=== PATIENT | male | born 1945 | race African-American/Black ===

== ENCOUNTER 2017-08-21 15:21 | Emergency (ER) | payer OTHER ==
[~2017-08-21] VITALS: Ht 177.8 cm; Wt 65.0 kg
[2017-08-21 16:45] LABS: BASOPHIL (%) 0.5 % (0-1); EOSINOPHIL (%) 2.1 % (0-5); EOSINOPHIL COUNT 0.2 K/uL (0-0.3); HEMOGLOBIN 14.9 G/DL (12.5-16.6); IMMATURE GRANULOCYTE (%) 0.2 % (0.0-0.7); LYMPHOCYTE (%) 21.4 % (15-42); LYMPHOCYTE COUNT 1.9 K/uL (1.0-2.8); MCH 33.2 PG (29.0-34.0); MCHC 33.9 G/DL (30.0-36.0); MONOCYTE (%) 6.8 % (3-12); MONOCYTE COUNT 0.6 K/uL (0-0.8); NEUTROPHIL COUNT 6.1 K/uL (1.8-6.4); PLATELET COUNT 191 K/uL (156-360); RBC DIS.WIDTH-CV 13.6 % (11.8-14.6); RBC DIS.WIDTH-SD 49.3 % (39-53); RED BLOOD COUNT 4.49 M/uL (4.00-5.50); WHITE BLOOD COUNT 8.9 K/uL (4.1-10.2)
[2017-08-21 16:54] LABS: PTT 26.4 SEC (25-37)
[2017-08-21 16:54] LABS: CHLORIDE 107 mEq/L (99-109); SODIUM 139 mEq/L (136-147)
[2017-08-21 16:56] LABS: GLUCOSE 98 mg/dL (70-99)
[2017-08-21 17:00] LABS: CREATININE 4.2 mg/dL (0.6-1.3); GFR ESTIMATE (CALCULATED) 18 mL/min/ (58.99-99999)
[2017-08-21 17:01] LABS: UREA NITROGEN (BUN) 35 mg/dL (9-23)
[2017-08-21 17:07] LABS: TROP-I INTERPRETATION NEGATIVE; TROPONIN-I 0.02 ng/mL (0.0-0.30)
[2017-08-21] MEDS ORDERED: LORTAB 5-325 M1 EACH PO (19:45)
[2017-08-21 19:57] VITALS: BP 175/97
== END 2017-08-21 19:58 | disposition home or self-care (01) ==
LOC: EME 15:21
PROVIDERS: Emergency Medicine
DX: S29.9XXA Unspecified injury of thorax, initial encounter (principal); I12.9 Hypertensive chronic kidney disease with stage 1 through stage 4 chronic kidney disease, or unspecified chronic kidney disease; N18.9 Chronic kidney disease, unspecified; V43.52XA Car driver injured in collision with other type car in traffic accident, initial encounter; W22.11XA Striking against or struck by driver side automobile airbag, initial encounter; Y92.410 Unspecified street and highway as the place of occurrence of the external cause; J44.9 Chronic obstructive pulmonary disease, unspecified; E78.5 Hyperlipidemia, unspecified; F17.200 Nicotine dependence, unspecified, uncomplicated
CPT/HCPCS: 71046; 80048; 83605; 84484; 85025; 85610; 85730; 93005; 99281; 99285

== ENCOUNTER 2017-10-27 12:33 | Emergency (ER) | payer OTHER ==
[~2017-10-27] VITALS: Ht 177.8 cm; Wt 66.3 kg
[~2017-10-27 12:33] MED LIST: LORTAB 5-325 M1 EACH PO
[2017-10-27] MEDS ORDERED: NORCO 5/3251 TABLET PO (16:34)
[2017-10-27] MEDS ORDERED: SKELAXIN800 MG PO (16:38)
[2017-10-27 16:51] VITALS: BP 132/87
== END 2017-10-27 16:53 | disposition home or self-care (01) ==
LOC: EME 12:33
DX: M16.12 Unilateral primary osteoarthritis, left hip (principal); I10 Essential (primary) hypertension; F17.200 Nicotine dependence, unspecified, uncomplicated; Z88.8 Allergy status to other drugs, medicaments and biological substances
CPT/HCPCS: 72192; 99281; 99284